=== PATIENT | female | born 1940 ===

== ENCOUNTER 2020-03-29 12:33 | Outpatient (CLI) | payer MEDICARE, OTHER ==
--- NOTE | 2020-03-29 15:13 | PET ---
PET SCAN WITH CT ATTENUATION CORRECTION: HISTORY: Abnormal finding. Lung mass. COMPARISON: None. TECHNIQUE: PET scan with CT attenuation correction is performed from the base of the brain to the proximal thigh s following the intravenous administration of 12.2 mCi of [id number]. FINDINGS: Head and neck: No abnormal FDG localization. Chest: Hypermetabolic AP window lymph node with a maximum SUV of 4.6, prevascular space with a maximu m SUV of 4.2, subcarinal with a maximum SUV of 11.7 and left hilar with a maximum SUV of 9.1. Hypermetabolic mass in the left lower lobe with a maximum SUV of 21.8.7. On the CT used for attenuat ion correction, this mass measures 3.[address] used for attenuation correction also demonstrates dependent atelectatic change and a calcified granuloma in the right lower lobe. Abdomen and pelvis: CT used for attenuation correction suggest previous hernia repair and cholecystec herson. No abnormal FDG localization. Osseous structures: No abnormal FDG avidity. CT used for attenuation correction demonstrates lumbar f usion at L3, L4 and L5. Grade 1 anterolisthesis of L3 upon L4 and L4 upon L5. No obvious perihardware lucency. IMPRESSION: 1. 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 2. Metastases with mediastinal and left hilar lymphadenopathy. Transcribed Date/Time: 03/29/2020 3:21 PM
== END 2020-03-29 12:34 | disposition home or self-care (01) ==
LOC: PET 12:33
DX: R91.8 Other nonspecific abnormal finding of lung field (principal); C79.51 Secondary malignant neoplasm of bone; R59.0 Localized enlarged lymph nodes
CPT/HCPCS: 78815; A9552